=== PATIENT | female | born 1975 | race African-American/Black ===

== ENCOUNTER → 2021-10-27 | Outpatient (CLI) | payer OTHER ==
[~2021-10-27] MED LIST: CLOP75TA60 PO; LEVO100T4 PO
== END | disposition home or self-care (01) ==
LOC: RADMN 13:45
PROVIDERS: ATTEND Internal Medicine
DX: I63.9 Cerebral infarction, unspecified (principal); H05.331 Deformity of right orbit due to trauma or surgery
CPT/HCPCS: 70551